=== PATIENT | male | born 1995 | race African-American/Black ===

== ENCOUNTER 2019-04-07 11:42 | Emergency (ER) | payer SELFPAY ==
[~2019-04-07] VITALS: Ht 180.3 cm; Wt 55.0 kg
[2019-04-07 12:10] VITALS: BP 123/62
[2019-04-07] MEDS ORDERED: LIDOCAINE WITH 8.4% SOD BICARB 3 ML DISP.SYRIN. INJ ONE (12:15)
[2019-04-07] MEDS ORDERED: SULF1TAB24 PO (13:59)
[2019-04-07] MEDS ORDERED: HYDR-3164 PO (13:59)
--- NOTE | 2019-04-07 13:59 | PHYS DOC ---
Past Medical History Past Medical History: No Pertinent History (SHIRA NARANJO APRN) Past Surgical History: No Surgical History (SHIRA NARANJO APRN) Smoking Status: Never Smoker Alcohol Use: None Drug Use: Marijuana (SHIRA NARANJO APRN) Adult General Chief Complaint Chief Complaint: ABSCESS HPI HPI Patient is a 23 year old male who presents with abscess to the left axilla and abdomen for 4 days. Has hx of abscesses. Had one drained at from the left axilla two days ago. (SHIRA NARANJO APRN) Review of Systems Review of Systems Constitutional: Denies fever or chills [] Musculoskeletal: Denies back pain or joint pain [] Integument: left axilla and abdomen Neurologic: Denies headache, focal weakness or sensory changes [] All other systems were reviewed and found to be within normal limits, except as documented in this note. (SHIRA NARANJO APRN) Current Medications Current Medications Current Medications Medications (Trade) Dose Ordered Sig/Tammie Start Time Stop Time Status Last Admin Dose Admin Lidocaine HCl (Buffered Lidocaine 1%) 6 ml 1X ONCE 04/07/19 12:15 04/07/19 12:16 DC 04/07/19 12:15 6 ML (YAKELIN COVARRUBIAS DO) Allergies Allergies Allergies Coded Allergies Type Severity Reaction Last Updated Verified No Known Drug Allergies 09/14/13 No (YAKELIN COVARRUBIAS DO) Physical Exam Physical Exam Constitutional: Well developed, well nourished, no acute distress, non-toxic appearance. [] Skin: left axilla with multiple abscess. There is one that is scabbed over that was drained at , there is an indurated are approx 3X3 cm with erythema and open center draining yellow bloody material. There is cellulites around the axilla. Lower abdomen with an indurated area approx. 3X3cm with open center draining yellow bloody material. Back: No tenderness, no CVA tenderness. [] Extremities: No tenderness, no cyanosis, no clubbing, ROM intact, no edema. [] Neurologic: Alert and oriented X 3, normal motor function, normal sensory function, no focal deficits noted. [] Psychologic: Affect normal, judgement normal, mood normal. [] (SHIRA NARANJO APRN) Current Patient Data Vital Signs Vital Signs Date Time Temp Pulse Resp B/P (MAP) Pulse Ox O2 Delivery O2 Flow Rate FiO2 04/07/19 12:10 98.2 77 18 123/62 (82) 95 Room Air 98.2 (YAKELIN COVARRUBIAS DO) EKG EKG [] (SHIRA NARANJO APRN) Radiology/Procedures Radiology/Procedures Indication: abscess of the left axilla and lower abdomen Procedure: The patient was positioned appropriately. Local anesthesia was buffered lidocaine 1%. An incision was then made over the apex of the lesions with 11 blade and moderate amount of bloody yellow material was expressed. The drainage cavity was irrigated and covered with sterile gauze. The patients tetanus status updated as needed. The patient tolerated the procedure poorly Complications: none.[] (SHIRA NARANJO APRN) Course & Med Decision Making Course & Med Decision Making Pertinent Labs and Imaging studies reviewed. (See chart for details) Patient has an abscess on the left axilla and lower abdomen that were drained by me as noted in procedures. Tetanus is up-to-date. Discharged on Bactrim. Provided prescription for hydrocodone. Provided general surgery for follow-up as an outpatient. (SHIRA NARANJO APRN) Dragon Disclaimer Dragon Disclaimer This electronic medical record was generated, in whole or in part, using a voice recognition dictation system. (SHIRA NARANJO APRN) Departure Departure Impression: Primary Impression: Abscess, abdomen Additional Impressions: Abscess of axilla, left Cellulitis of axilla, left Cellulitis, abdominal wall Disposition: 01 HOME, SELF-CARE Condition: STABLE Referrals: NO PCP (PCP) LELO CREWS MD follow up in 1-2 weeks Patient Instructions: Abscess, Care After Additional Instructions: Follow up with the provided doctor in 1-2 weeks Apply warm compresses twice a day. Complete your antibiotics. Scripts Hydrocodone/Apap 5-325 (NORCO 5-325 TABLET) 1 Each Tablet 1 TAB PO Q6HRS, #20 TAB Prov: SHIRA NARANJO APRN 04/07/19 Sulfamethoxazole/Trimethoprim (BACTRIM DS TABLET) 1 Each Tablet 1 TAB PO BID for 10 Days, #20 TAB 0 Refills Prov: SHIRA NARANJO APRN 04/07/19 Attending Signature Attending Signature I have reviewed the PA/GEOGRAPHIC INFORMATION SYSTEMS ENGINEER's note and plan of care. I was available for consultation as needed during the patient's visit in the emergency department. I agree with the clinical impression, plan, and disposition. (YAKELIN COVARRUBIAS DO) Problem Qualifiers JEFFREYBretSHIRA APRN Apr 07, 2019 13:59 YAKELIN COVARRUBIAS DO Apr 08, 2019 21:48
== END 2019-04-07 14:07 | disposition home or self-care (01) ==
LOC: ER 11:42
DX: L02.412 Cutaneous abscess of left axilla (principal); K65.1 Peritoneal abscess; F12.90 Cannabis use, unspecified, uncomplicated
CPT/HCPCS: 10061; 99284

== ENCOUNTER 2019-11-10 05:19 | Emergency (ER) | payer SELFPAY ==
[~2019-11-10] VITALS: Ht 180.3 cm; Wt 56.8 kg
[~2019-11-10 05:19] MED LIST: HYDR-3164 PO; SULF1TAB24 PO
[2019-11-10 05:25] VITALS: BP 143/94
[2019-11-10] MEDS ORDERED: IMIQ1CRE17 TP (05:37)
--- NOTE | 2019-11-10 05:37 | PHYS DOC ---
Past Medical History Past Medical History: No Pertinent History Past Surgical History: No Surgical History Smoking Status: Never Smoker Alcohol Use: None Drug Use: Marijuana General Adult EDM: Chief Complaint: SEXUALLY TRANSMITTED DISEASE HPI: HPI: Patient is a 24-year-old male who presents with chief complaint of lesion to his penis. He states he has noticed these lesions for the past 2 days. States he noticed these lesions approximate month ago and and they resolve on their own. Denies any pain. Denies any itching. Denies shaving in that area. Denies p enile discharge. Denies dysuria. Denies any testicular pain or swelling. Denies any swelling of lymph nodes in his inguinal region. Dates he is sexually active with one partner who is asymptomatic. No other complaints. Review of Systems: Review of Systems: Constitutional: Denies fever or chills. [] Eyes: Denies change in visual acuity. [] HENT: Denies nasal congestion or sore throat. [] Respiratory: Denies cough or shortness of breath. [] Cardiovascular: Denies chest pain or edema. [] GI: Denies abdominal pain, nausea, vomiting, bloody stools or diarrhea. [] : Denies dysuria. [] Musculoskeletal: Denies back pain or joint pain. [] Integument: Positive for rash Neurologic: Denies headache, focal weakness or sensory changes. [] Endocrine: Denies polyuria or polydipsia. [] Lymphatic: Denies swollen glands. [] Psychiatric: Denies depression or anxiety. [] Heart Score: Risk Factors: Risk Factors: DM, Current or recent (<one month) smoker, HTN, HLP, family history of CAD, obesity. Risk Scores: Score 0 - 3: 2.5% MACE over next 6 weeks - Discharge Home Score 4 - 6: 20.3% MACE over next 6 weeks - Admit for Clinical Observation Score 7 - 10: 72.7% MACE over next 6 weeks - Early Invasive Strategies Allergies: Allergies: Allergies Coded Allergies Type Severity Reaction Last Updated Verified No Known Drug Allergies 09/14/13 No Physical Exam: PE: Constitutional: Well developed, well nourished, no acute distress, non-toxic appearance. [] HENT: Normocephalic, atraumatic, bilateral external ears normal, oropharynx moist, no oral exudates, nose normal. [] Eyes: PERRLA, EOMI, conjunctiva normal, no discharge. [] Neck: Normal range of motion, no tenderness, supple, no stridor. [] Cardiovascular:Heart rate regular rhythm, no murmur [] Lungs & Thorax: Bilateral breath sounds clear to auscultation [] Abdomen: soft, no tenderness, no masses, no pulsatile masses. [] : Circumcised. No testicular pain or tenderness. No penile discharge noted. Multiple dome shaped, slightly raised, grouped dot-like papules noted to the dorsal aspect of the proximal penis. No ulcerative process noted. Skin: Warm, dry, no erythema, no rash. [] Back: No tenderness, no CVA tenderness. [] Extremities: No tenderness, no cyanosis, no clubbing, ROM intact, no edema. [] Neurologic: Alert and oriented X 3, normal motor function, normal sensory function, no focal deficits noted. [] Psychologic: Affect normal, judgement normal, mood normal. [] EKG: EKG: [] Radiology/Procedures: Radiology/Procedures: [] Course & Med Decision Making: Course & Med Decision Making Pertinent Labs and Imaging studies reviewed. (See chart for details) [] Patient is a well-appearing 24-year-old male who presents with chief complaint of raised lesions to the dorsal aspect of his proximal penis. Clinically consistent with condyloma acuminata. Rash not consistent with herpetic lesions or syphilis lesion. No penile discharge reported. Urinalysis will be sent for chlamydia and gonorrhea cultures. Given the patient is otherwise asymptomatic antibiotics were deferred. He was given cream for his rash. He was educated on HPV. He was instructed to follow-up with his primary care physician. Return precautions discussed and understood. Patient agreeable to discharge home. Rosette Disclaimer: Rosette Disclaimer: This electronic medical record was generated, in whole or in part, using a voice recognition dictation system. Departure Departure Impression: Primary Impression: Condyloma acuminata Disposition: HOME, SELF-CARE Condition: STABLE Referrals: NO PCP (PCP) Patient Instructions: Genital Warts, HPV Additional Instructions: Please follow-up with your primary care physician in the next 2 to 3 days. [facility] [address] [place], [place] [id number] [facility] [address] [place] [address] [facility] CARE [address] [place] [address] [facility] [address] [place] [address] [facility] [address] [place] [address] [address] [place] [address] [address] [place] [address] [facility] [address] [place] [address] [facility] [address] [place] [address] [facility] Department [address] [place] [address] Scripts Imiquimod (ALDARA) 1 Each Cream.pack 1 LAURIE TP UD for 14 Days, #12 PACKET 0 Refills apply to the affected area(s) before bedtime 3 times per week and leave on skin for 6 to 10 hours Prov: LYNETTE PERSAUD DO 11/10/19 Justicifation of Admission Dx: Justifications for Admission: Justification of Admission Dx: N/A LYNETTE PERSAUD DO Nov 10, 2019 05:37
== END 2019-11-10 05:57 | disposition home or self-care (01) ==
LOC: ER 05:19
DX: A63.0 Anogenital (venereal) warts (principal); R21 Rash and other nonspecific skin eruption; F12.90 Cannabis use, unspecified, uncomplicated
CPT/HCPCS: 87491; 87591; 99283

== ENCOUNTER 2020-04-16 09:56 | Emergency (ER) | payer OTHER ==
[~2020-04-16] VITALS: Ht 180.3 cm; Wt 59.0 kg
[~2020-04-16 09:56] MED LIST changes: +IMIQ1CRE17 TP
[2020-04-16 10:11] VITALS: BP 114/55
[2020-04-16 11:14] LABS: BARBITURATES NEG (NEG); BENZODIAZEPINES NEG (NEG); BILIRUBIN,URINE NEGATIVE (NEG); CANNABINOIDS NEG (NEG); CLARITY,URINE CLOUDY; COCAINE NEG (NEG); COLOR,URINE YELLOW; METHADONE NEG (NEG); NITRITE,URINE NEGATIVE (NEG); OPIATES NEG (NEG); PHENCYCLIDINE NEG (NEG); PROTEIN,URINE NEGATIVE (NEG-TRACE)
[2020-04-16 11:18] LABS: AMPHETAMINE/METHAMPHETAMINE NEG (NEG)
[2020-04-16 11:27] LABS: BACTERIA,URINE 0 /HPF (0-FEW); RBC,URINE 0 /HPF (0-2)
--- NOTE | 2020-04-16 11:42 | RAD ---
PROCEDURE: XR THORACIC SPINE 3VIEWS STUDY DATE: 04/16/2020 CLINICAL INDICATION / HISTORY: Reason: right thoracic back pain / Spl. Instructions: / History: . TECHNIQUE: Thoracic spine was examined in the AP lateral and swimmers projections. COMPARISON: No relevant comparisons currently available. FINDINGS: The osseous structures are normally mineralized. There is a normal thoracic kyphosis with n ormal alignment of the thoracic vertebral bodies. There is preservation of the vertebral body heights as well as the intervertebral disk space heights throughout the thoracic spine. No evidence of acute fracture or subluxation is identified. Note that the spinous processes are suboptimally evaluated on the lateral view due to overlap of upper thoracic dorsal chest wall soft tissue. IMPRESSION: Unremarkable examination of the thoracic spine as described. Note that the spinous proces ses are suboptimally evaluated on the lateral view due to overlap of upper thoracic dorsal chest wall soft tissue. If there is a high clinical index of suspicion for spinous process pathology, additiona l imaging with CT or MRI could be considered. Electronically signed by: Abrahan Rendon MD (04/16/2020 11:39 AM) [facility] [place]
[2020-04-16] MEDS ORDERED: METH-38 PO (12:12)
--- NOTE | 2020-04-16 12:13 | PHYS DOC ---
Past Medical History Past Medical History: No Pertinent History Additional Past Medical Histor: CHLAMYDIA, ABSCESS DRAINED Past Surgical History: No Surgical History Smoking Status: Current Every Day Smoker Alcohol Use: None Drug Use: Marijuana General Adult EDM: Chief Complaint: BACK PAIN - NO INJURY HPI: HPI: 24 yo AA male presents to the ED with complaints of right-sided mid back pain for the past year, no relief with Tylenol or ibuprofen. States he came to the ED, concerned for what is causing it. Describes as sharp, nonradiating and localized to a particular area. States pain is worsened with twisting movements and heavy lifting. Denies any known specific trauma or injury to his back. Has no associated saddle anesthesia, urine or bowel retention or incontinence. No fever, rash, dysuria or hematuria, chest pain, dyspnea or syncope. Denies any history of IV drug use, diabetes or immunocompromise state. Review of Systems: Review of Systems: Constitutional: Denies fever or chills. [] Eyes: Denies change in visual acuity. [] HENT: Denies nasal congestion or sore throat. [] Respiratory: Denies cough or shortness of breath. [] Cardiovascular: Denies chest pain or edema. [] GI: Denies abdominal pain, nausea, vomiting, bloody stools or diarrhea. [] : Denies dysuria. [] Musculoskeletal: Denies joint pain or deformity Integument: Denies rash. [] Neurologic: Denies headache, focal weakness or sensory changes. [] Endocrine: Denies polyuria or polydipsia. [] Lymphatic: Denies swollen glands. [] Psychiatric: Denies depression or anxiety. [] Heart Score: Risk Factors: Risk Factors: DM, Current or recent (<one month) smoker, HTN, HLP, family history of CAD, obesity. Risk Scores: Score 0 - 3: 2.5% MACE over next 6 weeks - Discharge Home Score 4 - 6: 20.3% MACE over next 6 weeks - Admit for Clinical Observation Score 7 - 10: 72.7% MACE over next 6 weeks - Early Invasive Strategies Allergies: Allergies: Allergies Coded Allergies Type Severity Reaction Last Updated Verified No Known Drug Allergies 09/14/13 No Physical Exam: PE: Constitutional: Well developed, well nourished, no acute distress, non-toxic appearance, tall/thin -denies any prior diagnosis of Marfan's or pneumothorax HENT: Normocephalic, atraumatic, Eyes: EOMI, conjunctiva normal, no discharge. Neck: Normal range of motion, supple, Cardiovascular: S1/2 present, regular rhythm Lungs & Thorax: Speaking in full sentences, bilateral equal chest rise, no tachypnea or increased work of breathing Abdomen: soft, no tenderness, Skin: Warm, dry, no erythema, no rash. [] Back: No midline tenderness or step-offs, patient initially evaluated seated on bed and quickly jumps off, points to right paraspinal thoracic region-no rash, no tenderness with palpation, location is over patient's erector spinae muscle, patient with no CVA tenderness Extremities: No tenderness, no cyanosis, no lower extremity edema Neurologic: Alert and oriented X 3, normal motor function, normal sensory function, no focal deficits noted. [] Psychologic: Affect normal, judgement normal, mood normal. [] Current Patient Data: Labs: Laboratory Tests Test 04/16/20 10:40 Urine Collection Type Unknown Urine Color Yellow Urine Clarity Cloudy Urine pH 6.0 (<5.0-8.0) Urine Specific [place] >=1.030 (1.000-1.030) Urine Protein Negative mg/dL (NEG-TRACE) Urine Glucose (UA) Negative mg/dL (NEG) Urine Ketones (Stick) Negative mg/dL (NEG) Urine Blood Negative (NEG) Urine Nitrite Negative (NEG) Urine Bilirubin Negative (NEG) Urine Urobilinogen Dipstick 1.0 mg/dL (0.2 mg/dL) Urine Leukocyte Esterase Trace (NEG) Urine RBC 0 /HPF (0-2) Urine WBC 1-4 /HPF (0-4) Urine Squamous Epithelial Cells Occ /LPF Urine Bacteria 0 /HPF (0-FEW) Urine Mucus Mod /LPF Urine Opiates Screen Neg (NEG) Urine Methadone Screen Neg (NEG) Urine Barbiturates Neg (NEG) Urine Phencyclidine Screen Neg (NEG) Urine Amphetamine/Methamphetamine Neg (NEG) Urine Benzodiazepines Screen Neg (NEG) Urine Cocaine Screen Neg (NEG) Urine Cannabinoids Screen Neg (NEG) Urine Ethyl Alcohol Neg (NEG) Vital Signs: Vital Signs Date Time Temp Pulse Resp B/P (MAP) Pulse Ox O2 Delivery O2 Flow Rate FiO2 04/16/20 10:11 98.2 74 16 114/55 (74) 97 Room Air 98.2 EKG: EKG: [] Radiology/Procedures: Radiology/Procedures: IMAGING REPORT Signed PATIENT: WILMA LANG DACCOUNT: [id number] : 1995 LOCATION: ER AGE: 24 SEX: M EXAM STATUS: REG ER ORD. PHYSICIAN: JONATHAN VENTURA DO REASON: right thoracic back pain PROCEDURE: THORACIC SPINE 3V PROCEDURE: XR THORACIC SPINE 3VIEWS STUDY DATE: 04/16/2020 CLINICAL INDICATION / HISTORY: Reason: right thoracic back pain / Spl. Instructions: / History: . TECHNIQUE: Thoracic spine was examined in the AP lateral and swimmers projections. COMPARISON: No relevant comparisons currently available. FINDINGS: The osseous structures are normally mineralized. There is a normal thoracic kyphosis with normal alignment of the thoracic vertebral bodies. There is preservation of the vertebral body heights as well as the intervertebral disk space heights throughout the thoracic spine. No evidence of acute fracture or subluxation is identified. Note that the spinous processes are suboptimally evaluated on the lateral view due to overlap of upper thoracic dorsal chest wall soft tissue. IMPRESSION: Unremarkable examination of the thoracic spine as described. Note that the spinous processes are suboptimally evaluated on the lateral view due to overlap of upper thoracic dorsal chest wall soft tissue. If there is a high clinical index of suspicion for spinous process pathology, additional imaging with CT or MRI could be considered. Electronically signed by: Noel Rendon MD (04/16/2020 11:39 AM) [facility] [place] DICTATED and SIGNED BY: NOEL RENDON MD DATE: 04/16/20 [id number] 0 Course & Med Decision Making: Course & Med Decision Making Pertinent Labs and Imaging studies reviewed. (See chart for details) Concern for right paraspinal thoracic back pain, suspect mild msk pain. Patient ambulating without distress moving/jumping. Normal physical exam. Will discharge home with strict ED return precautions were given for neurologic deficits including saddle anesthesia, urine or bowel retention or incontinence, paralysis radiculopathy. Encouraged urgent outpatient follow-up with PMD and orthopedic surgery for definitive diagnosis-may benefit from MRI. Life- threatening processes were considered but are low suspicion at this time, given history, physical exam and ED workup. Pt was educated on all prescription medications and adverse effects. All patient's questions were answered and pt was stable at time of discharge. Life/limb-threatening differential includes but is not limited to, aortic dissec tion/aneurysm, cauda equina syndrome, transverse myelitis, spinal cord/epidural compression syndromes, discitis, spinal stenosis, epidural abscess or hematoma, osteomyelitis, disc herniation, surgical abdomen, stable or unstable fracture, renal/ureteral colic, sepsis, meningitis, musculoskeletal injury, traumatic injury, intraabdominal/retroperitoneal or pelvic bleeding. I spoken with the patient and her caregivers. I explained the patient's condition, diagnoses and treatment plan based on the information available to me at this time. I have answered the patient and her caregiver's questions and addressed any concerns. The patient and her caregivers have a good understanding of patient's diagnosis, condition and treatment plan as can be expected at this point. Vital signs have been stable. Patient's condition is stable and appropriate for discharge from the emergency department. Patient will pursue further outpatient evaluation with primary care physician or other designated or consulting physician as outlined in the discharge instructions. The patient and/or caregivers are agreeable to this plan of care and follow-up instructions have been explained in detail. The patient and/or caregivers have received these instructions in written form and have expressed an understanding of the discharge instructions. The patient and/or caregivers are aware that any significant change of condition or worsening of symptoms should prompt immediate return to this or the closest emergency department or call to 911Lynn Dinero Disclaimer: Rosette Disclaimer: This electronic medical record was generated, in whole or in part, using a voice recognition dictation system. Departure Departure Impression: Primary Impression: Chronic back pain Disposition: 01 DC HOME SELF CARE/HOMELESS Condition: STABLE Referrals: NO PCP (PCP) FOLLOW UP WITH FAMILY MEDICINE: in 3-5 days Family Medicine Address: [address] [facility], [facility] [address] [place] [address] Patient Instructions: Back Pain, Adult Additional Instructions: FOLLOW UP WITH ORTHOPEDICS: Orthopaedic Sports Medicine Orthopaedic Surgery [facility] Address: [address] [facility], [facility] [address] [place] [address] EMERGENCY DEPARTMENT GENERAL DISCHARGE INSTRUCTIONS Thank you for coming to [facility] Emergency Department (ED) today and trusting us with you care. We trust that you had a positive experience in our Emergency Department. If you wish to speak to the department management, you may call the Director at [phone]. YOUR FOLLOW UP INSTRUCTIONS ARE FOLLOWS: 1. Do you have a private Doctor? If you do not have a private doctor, please ask for a resource list of physicians or clinics that may be able to assist you with follow up care. 2. The Emergency Physicain has interpreted your x-rays. The X-Ray specialist will also review them. If there is a change in the findings, you will be notified in 48 hours when at all possible. 3. A lab test or culture has been done, your results will be reviewed and you will be notified if you need a change in treatment. ADDITIONAL INSTRUCTIONS AND INFORMATION: 1. Your care today has been supervised by a physician who is specially trained in emergency care. Many problems require more than one evaluation for a complete diagnosis and treatment. We recommend that you schedule your follow up appointment as recommended to ensure complete treatment of you illness or injury. If you are unable to obtain follow up care and continue to have a problem, or if your condition worsens, we recommend that you return to the ED. 2. We are not able to safely determine your condition over the phone nor are we able to give sound medical advice over the phone. For these safety reasons, if you call for medical advice we will ask you to come to the ED for further evaluation. 3. If you have any questions regarding these discharge instructions please call the ED at [phone]. SAFETY INFORMATION: In the interest of safety, wellness, and injury prevention; we encourage you to wear your sealbelt, if you smoke; quite smoking, and we encourage family to use a protective helmet for bicycling and other sporting events that present an increased risk for head injury. IF YOUR SYMPTOMS WORSEN OR NEW SYMPTOMS DEVELOP, OR YOU HAVE CONCERNS ABOUT YOUR CONDITION; OR IF YOUR CONDITION WORSENS WHILE YOU ARE WAITING FOR YOUR FOLLOW UP APPOINTMENT; EITHER CONTACT YOUR PRIMARY CARE DOCTOR, THE PHYSICIAN WHOSE NAME AND NUMBER YOU WERE GIVEN, OR RETURN TO THE ED IMMEDIATELY. Scripts Methocarbamol (ROBAXIN-750) 750 Mg Tablet 1 TAB PO TID for pain for 10 Days, #30 TAB 0 Refills Prov: JONATHAN VENTURA DO 04/16/20 JONATHAN VENTURA DO Apr 16, 2020 12:13
== END 2020-04-16 12:17 | disposition home or self-care (01) ==
LOC: ER 09:56
DX: M54.6 Pain in thoracic spine (principal); G89.29 Other chronic pain; F17.200 Nicotine dependence, unspecified, uncomplicated
CPT/HCPCS: 72072; 80307; 81001; 87086; 99284

== ENCOUNTER 2021-02-04 03:02 | Emergency (ER) | payer SELFPAY ==
[~2021-02-04] VITALS: Ht 180.3 cm; Wt 59.0 kg
[~2021-02-04 03:02] MED LIST changes: +METH-38 PO
[2021-02-04 03:35] VITALS: BP 119/75
--- NOTE | 2021-02-04 03:54 | PHYS DOC ---
Past Medical History Past Medical History: No Pertinent History Additional Past Medical Histor: CHLAMYDIA, ABSCESS DRAINED Past Surgical History: No Surgical History Smoking Status: Current Every Day Smoker Alcohol Use: None Drug Use: Marijuana General Adult EDM: Chief Complaint: GROIN PAIN HPI: HPI: Patient is a 25 year old [f__sex] who presents with [] Review of Systems: Review of Systems: Constitutional: Denies fever or chills. [] Eyes: Denies change in visual acuity. [] HENT: Denies nasal congestion or sore throat. [] Respiratory: Denies cough or shortness of breath. [] Cardiovascular: Denies chest pain or edema. [] GI: Denies abdominal pain, nausea, vomiting, bloody stools or diarrhea. [] : Denies dysuria. [] Musculoskeletal: Denies back pain or joint pain. [] Integument: Denies rash. [] Neurologic: Denies headache, focal weakness or sensory changes. [] Endocrine: Denies polyuria or polydipsia. [] Lymphatic: Denies swollen glands. [] Psychiatric: Denies depression or anxiety. [] Heart Score: Risk Factors: Risk Factors: DM, Current or recent (<one month) smoker, HTN, HLP, family history of CAD, obesity. Risk Scores: Score 0 - 3: 2.5% MACE over next 6 weeks - Discharge Home Score 4 - 6: 20.3% MACE over next 6 weeks - Admit for Clinical Observation Score 7 - 10: 72.7% MACE over next 6 weeks - Early Invasive Strategies Allergies: Allergies: Allergies Coded Allergies Type Severity Reaction Last Updated Verified No Known Drug Allergies 09/14/13 No Physical Exam: PE: Constitutional: Well developed, well nourished, no acute distress, non-toxic appearance. [] HENT: Normocephalic, atraumatic, bilateral external ears normal, oropharynx moist, no oral exudates, nose normal. [] Eyes: PERRLA, EOMI, conjunctiva normal, no discharge. [] Neck: Normal range of motion, no tenderness, supple, no stridor. [] Cardiovascular:Heart rate regular rhythm, no murmur [] Lungs & Thorax: Bilateral breath sounds clear to auscultation [] Abdomen: Bowel sounds normal, soft, no tenderness, no masses, no pulsatile masses. [] Skin: Warm, dry, no erythema, no rash. [] Back: No tenderness, no CVA tenderness. [] Extremities: No tenderness, no cyanosis, no clubbing, ROM intact, no edema. [] Neurologic: Alert and oriented X 3, normal motor function, normal sensory function, no focal deficits noted. [] Psychologic: Affect normal, judgement normal, mood normal. [] Current Patient Data: Vital Signs: Vital Signs Date Time Temp Pulse Resp B/P (MAP) Pulse Ox O2 Delivery O2 Flow Rate FiO2 02/04/21 03:35 98.4 78 16 119/75 (90) 98 Room Air 98.4 EKG: EKG: [] Radiology/Procedures: Radiology/Procedures: [] Course & Med Decision Making: Course & Med Decision Making Pertinent Labs and Imaging studies reviewed. (See chart for details) [] Dragon Disclaimer: Dragon Disclaimer: This electronic medical record was generated, in whole or in part, using a voice recognition dictation system. Departure Departure Impression: Primary Impression: Left groin pain Disposition: HOME / SELF CARE / HOMELESS Condition: STABLE Referrals: NO PCP (PCP) Patient Instructions: Groin Strain Additional Instructions: ICE area of discomfort 20 min on then leave off next 20 mins. Repeat several times daily as needed for next few days. Take over the counter Tylenol and/or Ibuprofen for pain discomfort. YAKELIN COVARRUBIAS DO Feb 04, 2021 03:54
== END 2021-02-04 04:10 | disposition home or self-care (01) ==
LOC: ER 03:02
DX: R10.32 Left lower quadrant pain (principal); F17.200 Nicotine dependence, unspecified, uncomplicated
CPT/HCPCS: 99282